=== PATIENT | male | born 1970 | race Caucasian/White ===

== ENCOUNTER 2024-11-21 01:07 | Inpatient (IN) | payer OTHER, SELFPAY ==
[2024-11-21] VITALS (53 sets, daily range): BP systolic 94–166; BP diastolic 62–115; PULSE 61–91; RESP 11–34; TEMP 36.1–37.1; O2SAT 89–100; BMI 28.7
--- NOTE | 2024-11-21 01:08 | ECG_ITS ---
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 Measurements Intervals [place] Rate: 56 P: 76 MO: 154 QRS: 91 QRSD: 110 T: -2 QT: 457 QTc: 443 Interpretive Statements SINUS BRADYCARDIA ANTEROLATERAL MYOCARDIAL INFARCTION , ACUTE [40+ ms Q WAVE IN I/aVL/V3-V6] ACUTE MN No previous ECG available for comparison Electronically Signed On 11-21-2024 18:29:11 CDT by Tristan [email or web address]
--- NOTE | 2024-11-21 01:12 | ECG_ITS ---
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 Measurements Intervals [place] Rate: 60 P: 68 MT: 158 QRS: 66 QRSD: 90 T: 55 QT: 449 QTc: 452 Interpretive Statements SINUS RHYTHM WITH SINUS ARRHYTHMIA ANTEROSEPTAL AND LATERAL MYOCARDIAL INFARCTION , ACUTE [40+ ms Q WAVE IN V1-V4] ACUTE MN Compared to ECG 11/21/2024 01:08:53 Sinus bradycardia no longer present Myocardial infarct finding still present Electronically Signed On 11-21-2024 18:28:41 CDT by Tristan [email or web address] [id number]
[2024-11-21] MEDS: heparin 5,000 unit/mL INJ 1 mL 4000 UNIT IVP (01:17)
--- NOTE | 2024-11-21 01:17 | ED_ITS ---
HPI - Chest Pain General: Chief Complaint: Chest Pain Stated Complaint: stemi Time Seen by Provider: 11/21/24 01:08 History of Present Illness: 54-year-old male presents to the emergen cy room via EMS with sudden onset of chest pain. He had gone outside to smoke a cigarette and had chest discomfort became increasingly worse radiating to his back neck and left arm. Went back inside was nauseous had an episode of diarrhea became short of breath and diaphoretic EMS was called. EMS had called a STEMI in the field we did call the STEMI prior to their arrival EKG they send this had some abnormalities that were not clearly convincing. However on arrival the EKG given by EMS clearly showed an ST elevation. Repeat EKG in the department confirms obvious anterior septal TN with pronounced ST elevation in V1 through V6 most prominent in V2 3 and 4. Patient is actively having chest pain. 1 and aVL also show ST elevation. There are some slight reciprocal changes in 2 3 and aVF. Patient is a smoker he is nondiabetic he has no known history of coronary artery disease. He is not on any anticoagulation Associated symptoms: Deny abdominal pain, dyspnea or fever(s) Related Data Allergies Allergy/AdvReac Type Severity Reaction Status Date / Time metoprolol Allergy Unknown Verified 11/21/24 01:12 Review of Systems Const: Denies: fever(s) or chills Card: Reports: chest pain Resp: Denies: dyspnea GI: Denies: abdominal pain : Denies: dysuria, urinary frequency or urinary urgency Musc: Denies: neck pain or back pain Skin/Breast: Denies: rash Physical Exam Narrative: EXAM NARRATIVE: Pale and mildly diaphoretic on arrival Const: GENERAL APPEARANCE: cooperative ORIENTATION/CONSCIOUSNESS: Yes awake, Yes oriented to person, Yes oriented to place and Yes oriented to time HENMT: COMMON NORMALS: normocephalic, atraumatic and hearing grossly normal bilaterally HEAD & SCALP: normocephalic and atraumatic Resp: COMMON NORMALS: normal respiratory effort, No retractions, No use of accessory muscles and clear to auscultation bilaterally AUSCULTATION: clear to auscultation bilaterally Cardio: COMMON NORMALS: regular rate, regular rhythm and No murmurs present (Cardio) RATE: regular rate RHYTHM: regular rhythm GI: COMMON NORMALS: Soft to palpation and No hepatosplenomegaly present AUSCULTATION: Yes normoactive bowel sounds PALPATION: Yes Soft to palpation, No Tenderness to palpation present (GI), No Guarding due to palpation present (GI) and Yes No hepatosplenomegaly present Extremity: COMMON NORMALS: normal to inspection, capillary refill normal, no clubbing, cyanosis or edema, no calf tenderness and no pedal edema Neuro: SENSORIUM/ORIENTATION: Yes oriented to person, Yes oriented to place and Yes oriented to time Skin: COMMON NORMALS: no rashes or lesions noted GENERAL SKIN EXAM: no rashes or lesions noted Course Vital Signs: Vital signs: Vital Signs Temperature 97.5 F L 11/21/24 01:08 Pulse Rate 71 11/21/24 01:08 Respiratory Rate 16 11/21/24 01:08 Blood Pressure 134/99 11/21/24 01:08 Pulse Oximetry 100 11/21/24 01:08 Oxygen Delivery Me thod Room Air 11/21/24 01:08 MDM - Chest Pain Medical Decision Making Patient is clearly having an anterior septal TN with marked ST changes. Discussed with Dr. Sequeira he arrives shortly after patient had arrived. Yadiel pineda will be taken directly to [facility] Kn[facility]. Patient was given Plavix and heparin in the emergency room. Medical Records I reviewed the patient's medical records. Lab Data I reviewed the patient's lab results. No radiology studies performed this visit Discharge Plan Discharge Patient Disposition: Admitted As Inpatient Clinical Impression: ST elevation myocardial infarction (STEMI) Condition: Stable Coding Level of Care Code ED Motel Operator for Magen Byers
--- NOTE | 2024-11-21 01:25 | XACV_ITS ---
Exam Room: 2 Ht: 191 cm Wt: 104 kg BSA: 2.37 m2 Gender: Male : 1970 Exam Priority: Routine Procedure(s): Procedure Description: Diagnostic procedure Procedure Description: PCI procedure Procedure Description: Drug Eluting Coronary Stent Procedure Description: PTCA Procedure Description: Coronary Thrombectomy Procedure Description: Miscellaneous Procedure Description: ACT Procedure Description: Coronary Angiography Diagnostic Cath Status: Emergency Diagnostic Findings * INDICATION: STEMI. * Left Main has no significant disease. * Circumflex has mild luminal irregularities. OM 1 has diffuse moderate disease. * Proximal Left Anterior Descending: total thrombotic occlusion, 100% stenosis, SHUN: 0 flow. * Mid Left Anterior Descending: obstructive 70% stenosis, SHUN: 3 flow. * Proximal Right Coronary Artery: significant 80% stenosis, SHUN: 3 flow. * 1st Diagonal: obstructive 70% stenosis, SHUN: 3 flow. * Coronary angiography shows right dominance. PCI Status: Emergency Interventional Findings * Proximal Left Anterior Descendin% stenosis treated with a MDT LEONARD EUPHORA RX [id number] BALLOON, AB TREK 2.50X20 RX BALLOON, MDPrasanna Damico FATUMA 3.5X34 MANAN. 0% residual stenosis, SHUN: 3 flow. * Mid Left Anterior Descendin% stenosis treated with a MORALES Damico FATUMA 3.0X15 MANAN, MDT LEONARD EUPHORA RX [id number] BALLOON. 0% residual stenosis, SHUN: 3 flow. * Procedure detail: We engaged left main artery with XB 3.0 guide catheter. IV heparin was administered to maintain anticoagulation. Run-through wire was used to cross totally occluded LAD vessel and was placed in distal vessel. We initially performed balloon angioplasty with 2.5 x 15 mm. This did not restore any flow. We used Pronto aspiration catheter and performed manual thrombectomy. This restored flow into LAD. We then placed 3.5 x 34 mm resolute Fatuma drug-eluting stent from proximal to mid LAD. At distal edge of the stent, there was residual stenosis which was treated with 3.0 x 15 mm resolute Fatuma drug-eluting stent. Stents were postdilated with 3.75 x 15 mm resolute Blessing drug-eluting stent. At this time final angiogram was performed that showed excellent expansion and no residual stenosis. Ostial diagonal artery was also treated with 2.5 x 15 mm semicompliant balloon. 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 * Diagonal artery: 70% stenosis treated with a AB TREK 2.50X15 RX BALLOON. 0% residual stenosis, SHUN: 3 flow. Conclusions 1. Total thrombotic occlusion of proximal LAD. Status post successful revascularization with 2 stents and aspiration thrombectomy. 2. Diagonal artery was treated with a Balloon. 3. Mid Left Anterior Descending was treated with a Drug Eluting Stent and balloon. 4. Proximal Left Anterior Descending was treated with a Balloon, Balloon, Drug Eluting Stent. 5. Staged PCI of RCA in 2-4 weeks. Recommendations * Dual antiplatelet therapy with aspirin and plavix. * Plan for staged PCI of proximal RCA in 2-4 weeks. Interventional RX Recommendation: PCI w/o planned CABG Diagnostic RX Recommendation: PCI w/o planned CABG Anticoagulation: Heparin Pressures Phase:Rest AO : 96 / 73 ( 81 ) @ 11:10:11 PM Clinical Evaluation EBL: 5mL-10mL Procedural Details AP pads applied. Procedure started. Inpatient/Outpatient History & Physical on Chart: N/A Emergent. If H&P is completed, is and addenduem needed: N/A Emergent; If yes, is the addendum complete: N/A Emergent. Pre Procedural Pulses: bilateral radial was 3+. bilateral groins was prepped with chloroprep then draped in the usual sterile fashion. 6 burmese XB 3.5 guide catheter was inserted over the wire. Wire out. Balloon out otw. 5.5F Pronto aspiration catheter in over the wire to LAD. Manual coronary thrombectomy performed with pronto aspiration catheter. Pronto aspiration catheter out OTW. 2nd runthrough wire obtained and advanced to LAD. Balloon inserted to lesion in the prox LAD over second runthrough wire in LAD. Stent inserted to lesion in the prox LAD. Inflation number: 4 The stent balloon was then re-inflated across the Mid LAD to 12 JOE for 0:12 seconds. 1st runthrough wire out. Guideliner in over the wire. Inflation Number : 1 A MDT R FATUMA 3.0X15 MANAN -Lot Number# [id number] EXP 05-30-2027 was prepped and advanced across the Mid LAD. The stent was deployed at 12 JOE for 0:26 seconds. Inflation number: 4 The stent balloon was then re-inflated across the Prox LAD to 12 JOE for 0:10 seconds. Stent balloon out over the wire. Results checked. Balloon inserted to lesion in the mid LAD. Inflation number : 2 A MDT NC EUPHORA RX [id number] BALLOON was prepped and advanced across the Mid LAD , then inflated to 12 JOE for 0:10 seconds. Inflation number: 3 The MDT NC EUPHORA RX [id number] BALLOON was reinflated across the Mid LAD, to 14 JOE for 0:07 seconds. Inflation number: 1 The MDT NC EUPHORA RX 3.33T62QU BALLOON was reinflated across the Prox LAD, to 18 JOE for 0:12 seconds. Balloon out. Results checked. Guideliner out. Second runthrough wire advanced through guidecatheter to diagonal artery. Runthrough wire in LAD out. Balloon inserted to lesion in the diaganol. Unable to cross , undeployed 2.5 X 12mm balloon out over the wire. Balloon inserted to lesion in the diaganol. Undeployed 2.0 X 12 mm balloon out over wire. Wire out. Results checked. Admit Source: Emergency department. ACT drawn. Results out of range high results. Therapeutic limits - pre-heparin administration 90-150 seconds and monitoring heparin during a vascular procedure >250 seconds. Guide catheter out. A 5 burmese JR4 catheter in over wire. Wire out. Multiple views taken of right coronary artery. Catheter removed over the exchange wire. Wire out. ACT drawn. Results 286 seconds. Therapeutic limits - pre-heparin administration 90-150 seconds and monitoring heparin during a vascular procedure >250 seconds. Post Procedure: Pulses reassessed and unchanged. PERRLA. Strong, equal hand framework developer bilaterally. No VTE prophylaxis required. Medication's Wasted: Lidocaine 1% = 18 mL. Medication's Wasted: Nitro = 49.8 mg. Medication's Wasted: Heparin = 4000 units. Medication's Wasted: Other = Fentanyl 75mcg. Total IV fluids: 85 mL. PCI Indication: STEMI. Post-op diagnosis: Anterior wall NV, status post PCI placement of 2 stents to LAD. Complications: None. Estimated blood loss: 5mL-10mL. Responsiveness - Normal response to verbal stimuli; alert and oriented, PERRLA. Airway - Unaffected, no intervention required; spontaneous ventilation. Circulation: W/N/L, pulses unchanged. Nausea/Vomiting: Yes. Pre-Procedure Time Out. Identified patient by full name and date of as verbalized by the patient/guarantor. Does the consent match the physician's order: N/A Emergent; Informed Consent not obtained due to time critical life threat. Accurate & Complete Informed Consent: N/A Emergent; Informed Consent not obtained due to time critical life threat. Visualize and Verify Site with Patient/Guarantor: N/A. Relevant Radiology Images available: N/A. The risks, benefits, and alternatives of sedation and/or procedure were discussed by physician. The patient agrees to continue. [facility] Clinical Fraility Score: 3: Managing Well. Principal Software Engineer Indications: ACS <= 24 hours. Chest Pain Symptom Assessment: Typical Angina Symptoms. Correct patient, site and procedure confirmed by cath team. Current diagnosis: STEMI. PERRLA. Strong, equal hand framework developer bilaterally. Lungs clear x 5 lobes. IV Site on Arrival: 20 gauge in the right anticubital. IV Site on Arrival: 18 gauge in the left anticubital. IV Fluids: 0.9% NaCl at KVO. 0 mL infused prior to label printing machinist. Oxygen started at 2liters/min via nasal canula. Physician arrived. Physician scrubbed in. Immediate Pre-Procedure Time Out. Correct Patient: Yes; Correct Procedure: Yes; Correct Site: Yes; Correct Patient Position: Yes; Correct Supplies: Yes; Dried Flammable Prep: Yes; Blood Products Available: No;. Lidocaine 1% infiltrated to the right radial. Arterial access obtained. Runthrough guidewire was advanced through the guide catheter to lesion in the prox LAD. Guidewire advanced across lesion. Balloon inserted to lesion in the prox LAD. Inflation number : 1 A AB TREK 2.50X15 RX BALLOON was prepped and advanced across the Prox LAD1 , then inflated to 8 JOE for 0:10 seconds. Inflation number: 2 The AB TREK 2.50X15 RX BALLOON was reinflated across the Prox LAD1, to 8 JOE for 0:11 seconds. Inflation number: 3 The AB TREK 2.50X15 RX BALLOON was reinflated across the Prox LAD1, to 8 JOE for 0:14 seconds. Inflation number: 4 The AB TREK 2.50X15 RX BALLOON was reinflated across the Prox LAD1, to 8 JOE for 0:11 seconds. Inflation number: 5 The AB TREK 2.50X15 RX BALLOON was reinflated across the Prox LAD1, to 10 JOE for 0:12 seconds. Inflation number: 6 The AB TREK 2.50X15 RX BALLOON was reinflated across the Prox LAD1, to 10 JOE for 0:11 seconds. Inflation number: 7 The AB TREK 2.50X15 RX BALLOON was reinflated across the Prox LAD1, to 10 JOE for 0:12 seconds. Results checked. Inflation number : 2 A AB TREK 2.50X20 RX BALLOON was prepped and advanced across the Prox LAD , then inflated to 8 JOE for 0:13 seconds. Balloon out. Results checked. Inflation Number : 3 A MORALES R FATUMA 3.5X34 MANAN -Lot Number# [id number] EXP 10-08-2026 was prepped and advanced across the Prox LAD. The stent was deployed at 12 JOE for 0:15 seconds. Stent balloon out over wire. Stent inserted to lesion in the mid LAD. Stent inserted to lesion in the mid LAD. A TR Band was successful obtaining hemostatsis at the Right Radial artery insertion site. Procedure completed. Patient transferred by bed to ICU. Access Site Site: Right Radial artery Sheath Size: 6 Fr Hemostasis Method: TR Band Hemostasis Success: Successful Procedure Medications Start: 2:26 AM Stop: 2:26 AM Medication: Fentanyl Amount: 25 mcg Route: I.V. Start: 2:30 AM Stop: 2:30 AM Medication: Versed Amount: 1 mg Route: I.V. Start: 2:30 AM Stop: 2:30 AM Medication: Heparin Amount: 1000 units Route: I.V. Start: 2:39 AM Stop: 2:39 AM Medication: Versed Amount: 1 mg Route: I.V. Start: 2:55 AM Stop: 2:55 AM Medication: Zofran (ondansetron) Amount: 4 mg Route: I.V. Start: 1:31 AM Stop: 1:31 AM Medication: Zofran (ondansetron) Amount: 4 mg Route: I.V. Start: 1:31 AM Stop: 1:31 AM Medication: Versed Amount: 1 mg Route: I.V. Start: 1:31 AM Stop: 1:31 AM Medication: Fentanyl Amount: 25 mcg Route: I.V. Start: 1:39 AM Stop: 1:39 AM Medication: Versed Amount: 1 mg Route: I.V. Start: 1:42 AM Stop: 1:42 AM Medication: Nitrogylcerin Amount: 200 mcg Route: I.A. Start: 1:42 AM Stop: 1:42 AM Medication: Fentanyl Amount: 50 mcg Route: I.V. Start: 1:49 AM Stop: 1:49 AM Medication: Versed Amount: 1 mg Route: I.V. Start: 1:50 AM Stop: 1:50 AM Medication: Fentanyl Amount: 25 mcg Route: I.V. Start: 1:53 AM Stop: 1:53 AM Medication: Heparin Amount: 5000 units Route: I.V. Start: 1:54 AM Stop: 1:54 AM Medication: Fentanyl Amount: 25 mcg Route: I.V. Start: 1:59 AM Stop: 1:59 AM Medication: Versed 1 mg and Fentanyl 25 mcg Amount: 1 Route: I.V. Start: 2:03 AM Stop: 2:03 AM Medication: Heparin Amount: 1000 units Route: I.V. Start: 2:06 AM Stop: 2:06 AM Medication: Fentanyl Amount: 25 mcg Route: I.V. Start: 2:12 AM Stop: 2:12 AM Medication: Fentanyl Amount: 25 mcg Route: I.V. I, the attending physician, have reviewed and verified all procedure medications. Yes, all medications given per verbal order History/Risk Factors Renal Disease: No Report Signatures Finalized by Uvaldo Sequeira MD on 11/30/2024 11:57 AM
--- NOTE | 2024-11-21 01:27 | PM.HP ---
Providers/Chief Complaint Admitting Physician: Uvaldo Sequeira MD/ Cardiology Chief Complaint: stemi History of Present Illness Marquis Tilley is a 54 year old male with no significant prior cardiac history has been brought to the emergency room by EMS with with severe substernal chest pressure. According to patient it started acutely when he was out to smoke. Radiating to the left arm and jaw. Associated with diaphoresis and nausea. EKG demonstrating acute ST elevation NH in anterior and lateral leads. Review of Systems Const: Denies: fever(s) or chills Card: Reports: chest pain Resp: Denies: dyspnea GI: Denies: abdominal pain : Denies: dysuria, urinary frequency or urinary urgency Musc: Denies: neck pain or back pain Skin/Breast: Denies: rash Medications/Allergies Allergies Allergy/AdvReac Type Severity Reaction Status Date / Time metoprolol Allergy Unknown Verified 11/21/24 01:12 PFSH Acute PFSH: Social History Smoking and tobacco/nicotine status: current every day tobacco/nicotine user Vitals/I&O/Wt Last Vital Signs Temp 97.5 F L 11/21/24 01:08 Pulse 61 11/21/24 01:18 Resp 16 11/21/24 01:08 BP 134/99 11/21/24 01:18 Pulse Ox 100 11/21/24 01:18 O2 Del Method Room Air 11/21/24 01:08 Weight last 48 hrs Weight 230 lb Physical Exam Narrative: GENERAL: Patient is alert, awake and oriented x3. HEART: Regular S1 and S2. No murmur, rub or gallop. LUNGS: Clear to auscultate bilaterally. CENTRAL NERVOUS SYSTEM: Grossly nonfocal. EXTREMITIES: Lower extremities without edema bilaterally. Data 11/21/24 01:12 11/21/24 01:12 A&P Assessment and plan 1. ST elevation myocardial infarction (STEMI): Plan: Patient has presented with acute anterior/anterolateral wall ST elevation NH. Will take patient emergently to cardiac Environmental Health Safety Manager for coronary angiogram with PCI. Patient received loading doses of aspirin and Plavix. Also heparin bolus. We will obtain echocardiogram post procedure We will transfer patient to ICU. PDMP PDMP Reviewed: Not Reviewed Attestations Medical Necessity Statement*: Care expected to cross 2 midnights. Patient has presented with acute anterior/anterolateral wall ST elevation NH. Going to crime lab technician for emergent left heart cath with possible PCI. Coding Level of Care Code Acute Code for [facility]eeshan Diagnoses ST elevation myocardial infarction (STEMI) I21.3
[2024-11-21 01:37] LABS: Troponin(5th) Baseline 25 ng/L (0-15)
[2024-11-21 02:21] LABS: Hematocrit 44.3 % (37-53); Hemoglobin 15.10 g/dL (11.27-16.99); Mean Corpuscular HGB Conc 34.1 g/dL (30-55); Mean Corpuscular Hemoglobin 31.7 pg (27-33); Mean Corpuscular Volume 93.1 fl (82-101); Nucleated Red Blood Cells % 0 %; Platelet Count 312 10^3/cmm (157-399); Red Blood Count 4.76 10^6/uL (3.85-5.65); White Blood Count 17.74 10^3/uL (3.29-11.43)
[2024-11-21 02:35] LABS: Anion Gap 20.6 (5-19); Blood Urea Nitrogen 10 mg/dL (6-20); Calcium 9.4 mg/dL (8.5-10.5); Carbon Dioxide 21 mmol/L (22-29); Chloride 100 mmol/L (98-107); Creatinine Clr Calc Pharmacy 86.9004; Glucose 173 mg/dL (65-115); Osmolality Calculated 289 mOsm/kg (285-295); Potassium 3.6 mmol/L (3.5-5.1); Sodium 138 mmol/L (136-145)
--- NOTE | 2024-11-21 03:04 | USCV_ITS ---
Marquis Tilley Age: 54 Gender: M : 1970 Exam Date: 11/21/2024 03:56 Ordering Phys: Uvaldo Sequeira M.D ([email or web address]) Technologist: DEVORA Exam Location: [facility] [place] Indication: STEMI, s/p cardiac cath, long-term smoker continues smoking BP: 134 / 99 HR: 63 Rhythm: Sinus Technical Quality: Suboptimal MEASUREMENTS (Male / Female) Normal Values 2D ECHO LV Diastolic Diameter PLAX 4.0 cm 4.2 - 5.9 / 3.9 - 5.3 cm IVS Diastolic Thickness 1.9 cm 0.6 - 1.0 / 0.6 - 0.9 cm IVS Systolic Thickness 2.0 cm LVPW Diastolic Thickness 1.5 cm 0.6 - 1.0 / 0.6 - 0.9 cm LVPW Systolic Thickness 2.3 cm LVOT Diameter 2.1 cm LV Ejection Fraction 2D Teich 60.4 % LV Ejection Fraction MOD 4C 44.3 % LV Ejection Fraction MOD 2C 61.4 % LV Ejection Fraction 2C AL 1.4 % LA Diameter 4.2 cm Aorta at Sinotubular Diameter 3.0 cm IVC Diameter 2.6 cm M-MODE LA Ao Ratio MM 1.3 AV Cusp Separation MM 1.7 cm DOPPLER AV Peak Velocity 88.0 cm/s LVOT Peak Velocity 81.0 cm/s AV Area Cont Eq vti 3.3 cm squared AV Area Cont Eq pk 3.2 cm squared MV Peak Velocity 76.0 cm/s MV Area PHT 3.6 cm squared Mitral E to A Ratio 1.9 TR Peak Velocity 238.0 cm/s TR Peak Gradient 22.7 mmHg TV Peak E Velocity 48.0 cm/s PV Peak Velocity 77.0 cm/s FINDINGS Left Ventricle Mildly increased left ventricular cavity size. Moderately decreased left ventricular systolic function. Left ventricular ejection fraction is estimated at 45 %. There is mid to distal and apical hypokinesis suggestive of ischemic cardiomyopathy.Grade II/IV diastolic dysfunction, moderately elevated filling pressures. Right Ventricle The right ventricle is normal in size and function. Right Atrium The right atrium is normal in size. Left Atrium Moderately increased left atrial size. Mitral Valve Mildly thickened mitral valve. No mitral valve stenosis. Trace mitral valve regurgitation. Aortic Valve Mild aortic valve calcification. No aortic valve stenosis. Trace aortic valve regurgitation. Tricuspid Valve Structurally normal tricuspid valve without significant stenosis or regurgitation. Pulmonary artery systolic pressure is normal. Pulmonic Valve Structurally normal pulmonic valve without significant stenosis. There is no pulmonic regurgitation. Pericardium Normal pericardium without effusion. Aorta Normal ascending aorta dimension. IVC The inferior vena cava appears normal. CONCLUSIONS Mildly increased left ventricular cavity size. Moderately decreased left ventricular systolic function. Left ventricular ejection fraction is estimated at 45 %. There is mid to distal and apical hypokinesis suggestive of ischemic cardiomyopathy.Grade II/IV diastolic dysfunction, moderately elevated filling pressures. Moderately increased left atrial size. Mild aortic valve calcification. No aortic valve stenosis. Trace aortic valve regurgitation. Mildly thickened mitral valve. No mitral valve stenosis. Trace mitral valve regurgitation. There is no pericardial effusion. Right atrial pressure is around 15 mm of mercury. Cindy Gómez MD (Electronically Signed) Final Date: 22 November 2024 00:06 S
--- NOTE | 2024-11-21 03:06 | P.PCN_ITS ---
Procedure Note: Date of procedure: 11/21/24 Pre-procedure diagnosis: STEMI Post-procedure diagnosis: other (Total thrombotic occlusion of proximal LAD s/p PCI with 2 stents.) Procedure: Proximal LAD is totally occluded with a large thrombus burden. Status post PCI with 2 stents and aspiration thrombectomy. RCA has severe proximal vessel disease. Plan for staged PCI Dual antiplatelet therapy with aspirin and plavix High intensity statin therapy Transfer to ICU. We will load again with plavix 300mg and start aggrastat as patient had large amount of vomitting in director of cath lab after DAPT was given. Performing Provider: Uvaldo Sequeira Complications: None Condition: critical Disposition: ICU Coding Level of Care Code Acute Code for Magen Byers
--- NOTE | 2024-11-21 03:33 | ECG_ITS ---
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 Measurements Intervals [place] Rate: 61 P: 61 FL: 155 QRS: 91 QRSD: 96 T: 84 QT: 450 QTc: 456 Interpretive Statements SINUS RHYTHM BORDERLINE RIGHT AXIS DEVIATION [QRS AXIS > 90] ANTEROSEPTAL MYOCARDIAL INFARCTION , PROBABLY RECENT [40+ ms Q WAVE IN V1-V4] ACUTE [place] Compared to ECG 11/21/2024 01:13:23 Sinus arrhythmia no longer present Myocardial infarct finding still present Electronically Signed On 11-22-2024 08:51:23 CDT by Uvaldo Sequeira M.D. [email or web address]
[2024-11-21] MEDS: metoclopramide 5 mg/mL SDV 2 mL IVP (03:55)
--- NOTE | 2024-11-21 04:05 | PC.NURSE ---
Aggrastat Patient nauseous and vomiting. Dr. Sequeira contacted; orders received for 5 mg reglan IVP PRN Q6H as well as to administer the aggrastat for 8 hours total instead of 4 at the protocol rate.
[2024-11-21] MEDS: tirofiban 5 MG/100 ML PREMIX 12.5 MG IV (04:11)
[2024-11-21 06:07] LABS: Troponin 5 2HR 7726 ng/L (0-15); Troponin 5 2HR Delta 7701 ABS# (0-10)
--- NOTE | 2024-11-21 07:08 | ECG_ITS ---
[facility]ino Test Date: 2024-11-21 Pat Name: Marquis Tilley Department: Room: [facility] Gender: Male Surgical Nurse: : 1970 Requested By: Gaetano Alexander Order Number: [id number] Yolande MD: Uvaldo Sequeira M.D. Measurements Intervals [place] Rate: 69 P: 52 NV: 144 QRS: 76 QRSD: 98 T: 86 QT: 434 QTc: 467 Interpretive Statements SINUS RHYTHM ANTEROLATERAL MYOCARDIAL INFARCTION , PROBABLY RECENT [40+ ms Q WAVE IN I/aVL/V3-V6] Compared to ECG 11/21/2024 03:33:15 No significant changes Electronically Signed On 11-22-2024 08:46:55 CDT by Uvaldo Sequeira M.D. [email or web address]
[2024-11-21 07:44] LABS: Troponin 5 6HR 9378 ng/L (0-15)
[2024-11-21 07:45] LABS: Troponin 5 6HR Delta 9353 ng/L (0-12)
--- NOTE | 2024-11-21 08:11 | PC.NURSE ---
TR Band Removal 0410-2 ml air removed 0430-2 ml air removed 0450-2 ml air removed 0510-2 ml air removed 0540-2 ml air removed 0600-2 ml air removed 0615-2 ml air removed At 0635, TR band completely removed. No hematoma noted, all vital signs stable.
--- NOTE | 2024-11-21 12:06 | PC.NURSE ---
Dr. Kevin gave vo for one time dose of 300 mg plavix
[2024-11-21] MEDS: ondansetron 2 mg/ML SDV 2 mL 4 MG IVP (13:00)
[2024-11-21] MEDS: alum-mag-hydroxide-sime 30 mL UDC PO (20:58)
[2024-11-22] VITALS (27 sets, daily range): BP systolic 121–147; BP diastolic 87–109; PULSE 74–104; RESP 10–24; TEMP 36.6–37.2; O2SAT 91–98
[2024-11-22 05:30] LABS: Hematocrit 42.1 % (37-53); Hemoglobin 14.50 g/dL (11.27-16.99); Mean Corpuscular HGB Conc 34.4 g/dL (30-55); Mean Corpuscular Hemoglobin 31.5 pg (27-33); Mean Corpuscular Volume 91.5 fl (82-101); Nucleated Red Blood Cells % 0 %; Platelet Count 279 10^3/cmm (157-399); Red Blood Count 4.60 10^6/uL (3.85-5.65); White Blood Count 22.17 10^3/uL (3.29-11.43)
[2024-11-22 05:43] LABS: Anion Gap 18.9 (5-19); Blood Urea Nitrogen 14 mg/dL (6-20); Calcium 9.2 mg/dL (8.5-10.5); Carbon Dioxide 21 mmol/L (22-29); Chloride 101 mmol/L (98-107); Creatinine Clr Calc Pharmacy 91.1574; Glucose 121 mg/dL (65-115); Osmolality Calculated 286 mOsm/kg (285-295); Potassium 3.9 mmol/L (3.5-5.1); Sodium 137 mmol/L (136-145)
[2024-11-22 05:46] LABS: Estmated Average Glucose 120; Hemoglobin A1C 5.8 % (4.0-6.0)
--- NOTE | 2024-11-22 10:04 | PM.DCS ---
Discharge Providers Date of Admission: 11/21/24 03:15 Date of Discharge: November 22, 2024 Attending Provider at Admission: Uvaldo Sequeira M.D Attending Provider at Discharge: Uvaldo Sequeira M.D Diagnoses at Discharge Discharge Diagnosis 1. ST elevation myocardial infarction (STEMI): 2. Ischemic cardiomyopathy: Reason for Visit Reason for Visit: stemi Brief History: 54 year old male with no significant prior cardiac history has been brought to the emergency room by EMS with with severe substernal chest pressure. According to patient it started acutely when he was out to smoke. Radiating to the left arm and jaw. Associated with diaphoresis and nausea. EKG demonstrating acute ST elevation PA in anterior and lateral leads. Hospital Course Hospital Course Patient had total occlusion of proximal LAD. Underwent successful revascularization with 2 stents. There is an occluded diagonal artery in which flow was not restored. RCA has proximal significant stenosis. Will be treated with staged PCI in 2-4 weeks. Patient stayed stable and chest pain-free. Echo showed systolic function is mildly reduced with EF of 45%. Patient discharged home in a stable condition on aspirin, Plavix, statin, beta-james and losartan. We will arrange for outpatient close follow-up. WBC count was high which is reactive secondary to PA as patient is asymptomatic and afebrile. Physical Exam Narrative: GENERAL: Patient is alert, awake and oriented x3. HEART: Regular S1 and S2. No murmur, rub or gallop. LUNGS: Clear to auscultate bilaterally. CENTRAL NERVOUS SYSTEM: Grossly nonfocal. EXTREMITIES: Lower extremities without edema bilaterally. Discharge Data Studies Completed and Pending Completed Studies During Hospitalization Category Date Time Status CV. echo complete* [id number] Routine Ultrasound 11/21/24 03:04 Completed Pending at discharge Category Date Time Status FIRE PROTECTION INSPECTOR request for service Stat Exams 11/21/24 01:25 Taken Basic Metabolic Panel AM LABS Lab 11/23/24 04:00 Ordered Basic Metabolic Panel AM LABS Lab 11/24/24 04:00 Ordered Complete Blood Count w/Auto AM LABS Lab 11/23/24 04:00 Ordered Complete Blood Count w/Auto AM LABS Lab 11/24/24 04:00 Ordered Laboratory Results WBC 22.17 10^3/uL (3.29-11.43) H 11/22/24 04:36 RBC 4.60 10^6/uL (3.85-5.65) 11/22/24 04:36 Hgb 14.50 g/dL (11.27-16.99) 11/22/24 04:36 Hct 42.1 % (37-53) 11/22/24 04:36 MCV 91.5 fl (82-101) 11/22/24 04:36 MCH 31.5 pg (27-33) 11/22/24 04:36 MCHC 34.4 g/dL (30-55) 11/22/24 04:36 RDW 12.9 % (12.1-15.1) 11/22/24 04:36 Plt Count 279 10^3/cmm (157-399) 11/22/24 04:36 MPV 11.3 fL (7.4-10.4) H 11/22/24 04:36 Neut % (Auto) 75.5 % 11/22/24 04:36 Lymph % (Auto) 16.0 % 11/22/24 04:36 Catron % (Auto) 7.8 % 11/22/24 04:36 Eos % (Auto) 0.0 % 11/22/24 04:36 Baso % (Auto) 0.2 % 11/22/24 04:36 Neut # (Auto) 16.73 10^3/uL (1.8-7.7) H 11/22/24 04:36 Lymph # (Auto) 3.6 10^3/uL (0.8-4.8) 11/22/24 04:36 Catron # (Auto) 1.7 10^3/uL (0.2-0.9) H 11/22/24 04:36 Eos # (Auto) 0.0 10^3/uL (0.0-0.8) 11/22/24 04:36 Baso # (Auto) 0.0 10^3/uL (0.0-0.1) 11/22/24 04:36 Nucleated RBC % (auto) 0 % 11/22/24 04:36 Nucleated RBCs # 0.0 /100WBC 11/22/24 04:36 Sodium 137 mmol/L (136-145) 11/22/24 04:36 Potassium 3.9 mmol/L (3.5-5.1) 11/22/24 04:36 Chloride 101 mmol/L (98-107) 11/22/24 04:36 Carbon Dioxide 21 mmol/L (22-29) L 11/22/24 04:36 Anion Gap 18.9 (5-19) 11/22/24 04:36 BUN 14 mg/dL (6-20) 11/22/24 04:36 Creatinine 1.2 mg/dL (0.7-1.2) 11/22/24 04:36 GFR Calculation 63.6 mL/min (90-130) L 11/22/24 04:36 Glucose 121 mg/dL (65-115) H 11/22/24 04:36 Estimat Average Glucose 120 11/22/24 04:36 Hemoglobin A1c 5.8 % (4.0-6.0) 11/22/24 04:36 Calculated Osmolality 286 mOsm/kg (285-295) 11/22/24 04:36 Calcium 9.2 mg/dL (8.5-10.5) 11/22/24 04:36 Troponin T Baseline 25 ng/L (0-15) H 11/21/24 01:12 Troponin T 120 Minute 7726 ng/L (0-15) H 11/21/24 04:54 Delta Troponin T 7701 ABS# (0-10) H* 11/21/24 04:54 Troponin T Hi Sens 6Hr 9378 ng/L (0-15) H 11/21/24 07:11 Troponin T Hi Sens 6Hr Delta 9353 ng/L (0-12) H* 11/21/24 07:11 Vitals Last Vital Signs Temp 98.9 F 11/22/24 03:30 Pulse 76 11/22/24 06:21 Resp 17 11/22/24 06:00 BP 135/91 11/22/24 09:36 Pulse Ox 93 11/22/24 06:00 O2 Del Method Room Air 11/22/24 03:30 Discharge Plan Discharge Patient Disposition: Home Condition: Stable Prescriptions: New atorvastatin 40 mg Tablet 80 mg PO BEDTIME Qty: 90 3RF clopidogrel 75 mg Tablet 75 mg PO DAILY Qty: 90 3RF aspirin 81 mg Tablet,Delayed Release (Dr/Ec) 81 mg PO DAILY Qty: 90 3RF carvedilol 3.125 mg Tablet 3.125 mg PO BID Qty: 120 3RF losartan 50 mg Tablet 25 mg PO DAILY Qty: 90 3RF pantoprazole 20 mg tablet,delayed release (DR/EC) 20 mg PO DAILY Qty: 60 1RF Discontinued potassium chloride 10 mEq Capsule, Extended Release 10 meq PO BID magnesium 250 mg Tablet 250 mg PO DAILY omeprazole 20 mg Tablet,Delayed Release (Dr/Ec) 20 mg PO DAILY Discharge Order = DC NOW: Discharge Order (Routine); Ordered 11/22/24 Ordered By: Uvaldo Sequeira [facility] Family Medicine [Other] Helen Mooney FNP [Nurse Practitioner, Cardiology] - 7-10 days Discharge Diet: Cardiac Discharge Activity: Increase activity as tolerated Patient Instructions: Opioid Safety, Patient Portal & Luciano Instructions Discharge Attestations Time Spent in Discharge Care*: greater than 30 min Quality Metrics Clinical Quality Measures [ Acute Myocardial Infaction { Clinical Trial Participant: No; Contraindication to aspirin: None; Aspirin prescribed; Contraindication to statin: None; Statin prescribed; Contraindication to PCI: None; PCI performed;}] Coding Level of Care Code Acute Code for [facility] Diagnoses ST elevation myocardial infarction (STEMI) I21.3 Ischemic cardiomyopathy I25.5
--- NOTE | 2024-11-22 13:30 | PC.NURSE ---
Patient Discharged. Medications sent to [facility]. Bilateral IVs removed. Educated patient on upcoming appointments, new medications, and activity restrictions. Patient reiceived carvedilol this morning, did not use metoprolol due to history of rash. No rash developed after carvedilol. Radial cath site is unremarkable. Patient signature form signed.
== END 2024-11-22 11:55 | disposition home or self-care (01) | DRG 322 ==
LOC: ER 01:26 → CCL 01:28 → ICU 03:15
PROVIDERS: Admitting Provider Internal Medicine; Emergency Provider Family Medicine; Visit Provider Internal Medicine
PROC: 02703ZZ Dilation of Coronary Artery, One Artery, Percutaneous Approach (ICD-10-PCS; principal; 2024-11-21 01:00)
PROC: 02703ZZ Dilation of Coronary Artery, One Artery, Percutaneous Approach (ICD-10-PCS; 2024-11-21 01:00)
DX: I21.09 ST elevation (STEMI) myocardial infarction involving other coronary artery of anterior wall (principal); I25.5 Ischemic cardiomyopathy; F17.210 Nicotine dependence, cigarettes, uncomplicated; I25.10 Atherosclerotic heart disease of native coronary artery without angina pectoris; Z88.8 Allergy status to other drugs, medicaments and biological substances; Z79.899 Other long term (current) drug therapy
CPT/HCPCS: 36415; 80048; 83036; 84484; 85025; 85347; 92973; 93005; 93306; 93454; 96374; 99152; 99153; 99285; C1725; C1757; C1769; C1874; C1887; C1894; C9600; J1644; J2250; J2405; J2765; J3010; J3490; J7030; J9999; Q9967

== ENCOUNTER → 2024-11-27 11:14 | Outpatient (BNVA) | payer OTHER, MEDICARE, SELFPAY | DX: Z09 Encounter for follow-up examination after completed treatment for conditions other than malignant neoplasm (principal); I25.5 Ischemic cardiomyopathy | CPT/HCPCS: 80053; 80061; 84443 ==

== ENCOUNTER → 2024-12-01 15:06 | Outpatient (BNVA) | payer OTHER, MEDICARE, SELFPAY | PROVIDERS: Visit Provider Nurse Practitioner Family | DX: I25.10 Atherosclerotic heart disease of native coronary artery without angina pectoris (principal); I25.5 Ischemic cardiomyopathy; I10 Essential (primary) hypertension; Z09 Encounter for follow-up examination after completed treatment for conditions other than malignant neoplasm; Z79.02 Long term (current) use of antithrombotics/antiplatelets; Z79.82 Long term (current) use of aspirin; F17.200 Nicotine dependence, unspecified, uncomplicated; Z95.5 Presence of coronary angioplasty implant and graft; I25.2 Old myocardial infarction | CPT/HCPCS: 99213 ==

== ENCOUNTER 2024-12-10 12:52 | Outpatient (CLI) | payer OTHER, SELFPAY ==
[2024-12-10 15:29] LABS: Hematocrit 36.9 % (37-53); Hemoglobin 12.40 g/dL (11.27-16.99); Mean Corpuscular HGB Conc 33.6 g/dL (30-55); Mean Corpuscular Hemoglobin 30.7 pg (27-33); Mean Corpuscular Volume 91.3 fl (82-101); Nucleated Red Blood Cells % 0 %; Platelet Count 481 10^3/cmm (157-399); Red Blood Count 4.04 10^6/uL (3.85-5.65); White Blood Count 10.05 10^3/uL (3.29-11.43)
[2024-12-10 15:48] LABS: Alanine Aminotransferase 12 U/L (0-41); Albumin Level 3.9 g/dL (3.5-5.2); Alkaline Phosphatase 84 U/L (40-130); Anion Gap 14.9 (5-19); Aspartate Amino Transferase 12 U/L (0-40); Blood Urea Nitrogen 12 mg/dL (6-20); Calcium 8.6 mg/dL (8.5-10.5); Carbon Dioxide 22 mmol/L (22-29); Chloride 105 mmol/L (98-107); Globulin 3.3 g/dL (1.3-4.6); Glucose 110 mg/dL (65-115); Osmolality Calculated 286 mOsm/kg (285-295); Potassium 3.9 mmol/L (3.5-5.1); Sodium 138 mmol/L (136-145); Total Protein 7.2 g/dL (6.6-8.7)
[2024-12-10 16:47] LABS: Free T4 Free Thyroxine 0.92 ng/dL (0.82-1.77)
== END 2024-12-10 12:53 | disposition home or self-care (01) ==
PROVIDERS: Visit Provider Nurse Practitioner Family
DX: I10 Essential (primary) hypertension (principal); I25.5 Ischemic cardiomyopathy
CPT/HCPCS: 36415; 80053; 84439; 85025

== ENCOUNTER 2024-12-15 05:43 | Outpatient (CLI) | payer OTHER, SELFPAY ==
--- NOTE | 2024-12-15 06:00 | XACV_ITS ---
Ht: 191 cm Wt: 100 kg BSA: 2.31 m2 Gender: Male : 1970 Any Known Allergies: Other Exam Priority: Routine Procedure(s): Procedure Description: Diagnostic procedure Procedure Description: PCI procedure Procedure Description: Drug Eluting Coronary Stent Procedure Description: PTCA Procedure Description: Miscellaneous Procedure Description: ACT Procedure Description: Coronary Angiography Diagnostic Cath Status: Elective Diagnostic Findings * INDICATION: Staged PCI of proximal RCA. * Proximal Right Coronary Artery : Severe 80% stenosis, SHUN: 3 flow. PLV has diffuse disease. * Left system not injected as this is a staged PCI of RCA. * Coronary angiography shows right dominance. PCI Status: Elective PCI Indication: Staged PCI Interventional Findings * Proximal Right Coronary Artery : 80% stenosis treated with a AB TREK 3.00X15 RX BALLOON, MORALES R WILLIE 3.5X18 MANAN, and MDT LEONARD EUPHORA RX 3.31X14EG BALLOON. 0% residual stenosis, SHUN: 3 flow. * Procedure detail: We engaged RCA with JR4 guide catheter. Run-through wire was used to cross the stenosis. Heparin was used to anticoagulate patient. We predilated stenosis with a 3.0 x 15 mm semi compliant balloon. We then placed 3.5x18mm resolute willie MANAN. We post dilated stent with 3.5x12mm NC balloon at high pressure. At this time final angiogram was performed that showed excellent stent expansion, no residual stenosis and SHUN-3 flow. Guidewire and guide catheter were removed. Patient left the nursery laborer in a stable condition. . Conclusions 1. Severe proximal RCA stenosis s/p PCI with 1 stent. 2. Proximal Right Coronary Artery to Proximal Right Coronary Artery was treated with a Balloon, Drug Eluting Stent, and Balloon. Recommendations * Dual antiplatelet therapy with aspirin and plavix. * High intensity statin therapy. * Outpatient cardiology follow up in 2 weeks. Interventional RX Recommendation: PCI w/o planned CABG Diagnostic RX Recommendation: PCI w/o planned CABG Anticoagulation: Heparin Pressures Phase:Rest AO : 95 / 73 ( 85 ) @ 9:22:00 AM Clinical Evaluation EBL: 5mL-10mL Procedural Details Procedure Consent Obtained. Admit Source: Out Patient. Pre-Procedure Time Out. Identified patient by full name and date of as verbalized by the patient/guarantor. Does the consent match the physician's order: Yes. Accurate & Complete Informed Consent: Yes. Inpatient/Outpatient History & Physical on Chart: Yes. If H&P is completed, is and addenduem needed: No; If yes, is the addendum complete: N/A. Visualize and Verify Site with Patient/Guarantor: N/A. Relevant Radiology Images available: N/A. The risks, benefits, and alternatives of sedation and/or procedure were discussed by physician. The patient agrees to continue. Physician arrived. Current diagnosis: Staged PCI of the RCA. Procedure started. [facility] Clinical Fraility Score: 3: Managing Well. Senior Service Technician Indications: Other. Chest Pain Symptom Assessment: Atypical Angina. Cardiovascular Instability: No. Correct patient, site and procedure confirmed by cath team. PERRLA. Strong, equal hand hospital account manager bilaterally. Lungs clear x 5 lobes. IV Site on Arrival: 20 gauge in the left anticubital. IV Fluids: 0.9% NaCl at KVO. 300 mL infused prior to nursery laborer. Pre Procedural Pulses: bilateral posterior tibial was 1+. Pre Procedural Pulses: bilateral dorsalis pedis was Doppled. Pre Procedural Pulses: bilateral radial was 2+. Oxygen started at 3liters/min via nasal canula. right groin was prepped with chloroprep then draped in the usual sterile fashion. right radial was prepped with chloroprep then draped in the usual sterile fashion. Baseline sample Acquired. HR: 0 BPM. Family updated by MD prior to the start of the procedure. Physician scrubbed in. Baseline sample Acquired. HR: 90 BPM. Immediate Pre-Procedure Time Out. Correct Patient: Yes; Correct Procedure: Yes; Correct Site: Yes; Correct Patient Position: Yes; Correct Supplies: Yes; Dried Flammable Prep: Yes; Blood Products Available: N/A;. Lidocaine 1% infiltrated to the right radial. Arterial access obtained. 6 moroccan JR 4 guide catheter was inserted over the wire. Guide seated in the RCA. Runthrough guidewire was advanced through the guide catheter to lesion in the prox RCA. Guidewire advanced across lesion. Inflation number : 1 A AB TREK 3.00X15 RX BALLOON was prepped and advanced across the Prox RCA , then inflated to 10 JOE for 0:12 seconds. Inflation number: 2 The AB TREK 3.00X15 RX BALLOON was reinflated across the Prox RCA, to 10 JOE for 0:11 seconds. Inflation number: 3 The AB TREK 3.00X15 RX BALLOON was reinflated across the Prox RCA, to 12 JOE for 0:10 seconds. Results checked. Balloon out. Inflation Number : 4 A MDT R WILLIE 3.5X18 MANAN -Lot Number# [id number] EXP 03/16/27 was prepped and advanced across the Prox RCA. The stent was deployed at 12 JOE for 0:22 seconds. Results checked. Stent balloon out over wire. Results checked. Inflation number : 5 A MDT NC EUPHORA RX [id number] BALLOON was prepped and advanced across the Prox RCA , then inflated to 12 JOE for 0:19 seconds. Inflation number: 6 The MDT NC EUPHORA RX 3.21X56HI BALLOON was reinflated across the Prox RCA, to 18 JOE for 0:09 seconds. Inflation number: 7 The MDT NC EUPHORA RX [id number] BALLOON was reinflated across the Prox RCA, to 18 JOE for 0:08 seconds. Inflation number: 8 The MDT NC EUPHORA RX 3.69F25DR BALLOON was reinflated across the Prox RCA, to 18 JOE for 0:04 seconds. Balloon out. Results checked. ACT drawn. Results Out of range Hi seconds. Therapeutic limits - pre-heparin administration 90-150 seconds and monitoring heparin during a vascular procedure >250 seconds. Wire out. Results checked. Guide catheter out. [id number]. Physician review of films. Physician scrubbed out. Post-op diagnosis: Severe proximal RCA lesion; status post 1 drug eluting stent. A TR Band was successful obtaining hemostatsis at the Right Radial artery insertion site. TR band placed. Hemostasis obtained. Post Procedure: Pulses reassessed and unchanged. PERRLA. Strong, equal hand hospital account manager bilaterally. No VTE prophylaxis required. Medication's Wasted: Lidocaine 1% = 18 ml , Nitro = 49.8 mg, Heparin =1000 units. Total IV fluids: 300 mL. Fluoro: 6:04. Contrast type used: Visipaque 320 mgI/mL, 100 mL bottle. Complications: None. Estimated blood loss: 5mL-10mL. Responsiveness - Normal response to verbal stimuli; alert and oriented, PERRLA. Airway - Unaffected, no intervention required; spontaneous ventilation. Circulation: W/N/L, pulses unchanged. Nausea/Vomiting: No. Procedure completed. Patient transferred by bed to 1st floor. Vital chart was stopped. Access Site Site: Right Radial artery Sheath Size: 6 Fr Hemostasis Method: TR Band Hemostasis Success: Successful Procedure Medications Start: 7:53 AM Stop: 7:53 AM Medication: Versed Amount: 1 mg Route: I.V. Start: 7:53 AM Stop: 7:53 AM Medication: Fentanyl Amount: 50 mcg Route: I.V. Start: 7:57 AM Stop: 7:57 AM Medication: Versed Amount: 1 mg Route: I.V. Start: 8:00 AM Stop: 8:00 AM Medication: Versed 1 mg and Fentanyl 25 mcg Amount: 1 Route: I.V. Start: 8:04 AM Stop: 8:04 AM Medication: Nitrogylcerin Amount: 200 mcg Route: I.A. Start: 8:05 AM Stop: 8:05 AM Medication: Versed Amount: 1 mg Route: I.V. Start: 8:06 AM Stop: 8:06 AM Medication: Heparin Amount: 9000 units Route: I.V. Start: 8:17 AM Stop: 8:17 AM Medication: Heparin Amount: 1000 units Route: I.V. Start: 8:20 AM Stop: 8:20 AM Medication: 0.9% Saline Amount: 250 ml Route: I.V. bolus Start: 8:24 AM Stop: 8:24 AM Medication: Fentanyl Amount: 25 mcg Route: I.V. I, the attending physician, have reviewed and verified all procedure medications. Yes, all medications given per verbal order History/Risk Factors Hypertension: Yes Dyslipidemia: No Peripheral Arterial Disease (PAD): No Myocardial Infarction (CO): Yes Obesity: No Renal Disease: No Tobacco Use: Current/Recent(w/in 1 year) Prior Interventions PCI: Yes CABG: No Valve Surgery: No Date of PCI: 11/21/2024 Report Signatures Finalized by Uvaldo Sequeira MD on 12/15/2024 09:12 AM
[2024-12-15 06:29] VITALS: BP 127/97; PULSE 91; RESP 16; TEMP 36.5; O2SAT 97; BMI 27.5
--- NOTE | 2024-12-15 07:46 | W.PM.OPSUD ---
Surgery/Procedure H&P Update DATE OF PROCEDURE: December 15, 2024 DATE H&P PERFORMED: 12/01/24 H&P UPDATE INFORMATION: I have reviewed H&P completed within last 30 days, I have examined patient prior to procedure and No changes to prior documentation PREOP DIAGNOSIS: Severe proximal to mid RCA stenosis / staged PCI PRIMARY INDICATION FOR PROCEDURE: Severe proximal to mid RCA stenosis / staged PCI PLANNED PROCEDURE: Operation Date: 12/15/24 07:00 Proposed Procedures p Percutaneous Coronary Intervention - Staged PCI(Not Applicable) - Uvaldo Sequeira M.D PATIENT REASSESSED PRIOR TO SEDATION, WITH NO CHANGE NOTED: Yes PHYSICAL EXAM: alert, oriented x 3, clear to auscultation bilaterally and regular rate & rhythm AIRWAY EVAL/ANESTHESIA PLAN: normal airway, ASA III, Local Anesthesia, Risks, benefits & alternatives of sedation and/or procedure discussed and Patient agrees to continue as planned ADDITIONAL INFORMATION: Moderate sedation
--- NOTE | 2024-12-15 08:29 | PM.PROC ---
Procedure Note: Date of procedure: 12/15/24 Pre-procedure diagnosis: Severe proximal RCA stenosis Post-procedure diagnosis: other (S/p PCI with 1 stent) Procedure: Severe proximal RCA stenosis s/p PCI with 1 stent Dual antiplatelet therapy with aspirin and plavix Performing Provider: Uvaldo Sequeira Estimated blood loss (mL): 10 Complications: None Condition: stable Disposition: floor Coding Level of Care Code [facility]
--- NOTE | 2024-12-15 08:45 | PC.NURSE ---
Received pt from physical laboratory assistant Pt is awake,ox4. Denies any chest pain or discomfort. TR band intact on right wrist. No hematoma,bleeding or swelling,radial pulse is palpale+3. Educated pt to notify nurse BASIL for any chest pain or discomfort. Unusual pain,burning sensation or swelling or bleeding on right wrist. Instructed pt on activity restriction on right wrist such as no lifting using right arm. call light provided.telemtry and BP attached and taken WNL. at bedside.
[2024-12-15 09:52] VITALS: BP 121/83; PULSE 79; RESP 29; O2SAT 95
--- NOTE | 2024-12-15 16:11 | P.SS_ITS ---
<Statement entered by Uvaldo Sequeira M.D - 12/15/24 16:35> Patient was cared for in conjunction with an advanced practice practitioner.? I reviewed the chart and all pertinent data including imaging, telemetry, and laboratory results.? I discussed the patient in detail with the advanced practice practitioner.? Please see?their note for discharge summary, testing results and agreed upon plan of care for the patient. Short Stay Summary Providers Date of Admit/Discharge: 12/15/24 Attending Provider: Uvaldo Sequeira M.D Primary Care Provider: Marlen Vaz NP Chief Complaint: I25.5 HPI History of Present Illness Marquis Tilley is a 54 year old male with past medical history of STEMI in October due to stenosis of the LAD which was treated with MANAN x 2. At that time RCA stenosis noted as well, plan was for staged RCA intervention. Review of Systems Card: Denies: chest pain, palpitations, irregular heart rhythm, edema, swelling of feet/ankles, lightheadedness, syncope, pre-syncope, dyspnea on exertion, orthopnea or leg pain with exertion Resp: Denies: dyspnea, productive cough or non-productive cough GI: Denies: hematochezia : Denies: hematuria Skin/Breast: Reports: surgical incision Mario/Lymph: Denies: easy bleeding Home Meds/Allergies Home Medications and Allergies Home Medications ?Medication ?Instructions ?Recorded ?Confirmed ?Type levothyroxine 137 mcg tablet 137 mcg PO DAILY 12/12/24 12/12/24 History Allergies Allergy/AdvReac Type Severity Reaction Status Date / Time metoprolol Allergy ALGY-Rash Verified 12/15/24 06:17 PFSH Acute PFSH: Medical History ST elevation myocardial infarction (STEMI) Surgical History H/O inguinal hernia repair bilateral Hx of tonsillectomy H/O thyroidectomy 2012 Family History Father Pancreatic cancer Diabetes mellitus, type 2 Social History Smoking and tobacco/nicotine status: current every day tobacco/nicotine user Quit status (tobacco/nicotine): considering quitting Alcohol intake: never Substance/Drug Use: current Substance/Drug use frequency: daily Vitals/I&O/Wt Last Vital Signs Temp 97.7 F 12/15/24 06:29 Pulse 79 12/15/24 09:52 Resp 29 H 12/15/24 09:52 BP 121/83 12/15/24 09:52 Pulse Ox 95 12/15/24 09:52 O2 Del Method Room Air 12/15/24 06:29 12/15/24 12/15/24 12/15/24 06:59 14:59 22:59 Intake Total 354 / 354 Balance 354 / 354 Weight last 48 hrs Weight 220 lb Physical Exam Const: COMMON NORMALS: no acute distress and patient oriented x3 GENERAL APPEARANCE: cooperative ORIENTATION/CONSCIOUSNESS: Yes awake, Yes oriented to person, Yes oriented to place and Yes oriented to time Chest: COMMONS NORMALS: normal inspection of the chest and normal palpation of entire chest wall CHEST: Yes Symmetrical chest wall rise Resp: COMMON NORMALS: normal respiratory effort, No retractions, No use of accessory muscles and clear to auscultation bilaterally AUSCULTATION: clear to auscultation bilaterally Cardio: COMMON NORMALS: regular rate, regular rhythm, S1 normal heart sound present, S2 normal heart sound present, No gallops present (Cardio), No clicks present (Cardio), No murmurs present (Cardio) and No rub (Cardio) RATE: regular rate RHYTHM: regular rhythm HEART SOUNDS: S1 normal heart sound present and S2 normal heart sound present PERIPHERAL PULSES: radial pulses present positive right 2+ and femoral pulses present positive right 2+ Neuro: COMMON NORMALS: patient oriented x3 and moves all extremities SENSORIUM/ORIENTATION: Yes oriented to person, Yes oriented to place and Yes oriented to time Skin: WOUNDS: Yes surgical site (no hematoma palpable) Details: no odor Hospital Course Admission Diagnoses Hospital Course He was brought today for staged intervention of the RCA, treated with MANAN x 1. He has done well during the day today since his procedure this morning. No complications with right radial cath site, no chest pain or shortness of breath since the procedure. Continue aspirin, Plavix, statin, carvedilol. He will discharge home today, follow-up with cardiology clinic in 7 to 10 days. SSS Data Data Completed and Pending: Completed Studies During Hospitalization Category Date Time Status ART PSYCHOTHERAPIST OR THERAPIST request for service Routin e Exams 12/15/24 06:00 Completed Discharge Plan Discharge Patient Disposition: Home Prescriptions: Continued levothyroxine 137 mcg Tablet 137 mcg PO DAILY atorvastatin 40 mg Tablet 80 mg PO BEDTIME Qty: 90 3RF clopidogrel 75 mg Tablet 75 mg PO DAILY Qty: 90 3RF aspirin 81 mg Tablet,Delayed Release (Dr/Ec) 81 mg PO DAILY Qty: 90 3RF carvedilol 3.125 mg Tablet 3.125 mg PO BID Qty: 120 3RF losartan 50 mg Tablet 25 mg PO DAILY Qty: 90 3RF pantoprazole 20 mg tablet,delayed release (DR/EC) 20 mg PO DAILY Qty: 60 1RF Discharge Order = DC NOW: Discharge Order (Routine); Ordered 12/15/24 Ordered By: Helen Mooney Referrals: Marlen Vaz NP [Primary Care Provider, Family Practice] - 12/23/24 10:40 am Helen Mooney FNP [Nurse Practitioner, Cardiology] - 12/26/24 11:00 am Diet: Cardiac Activity: Increase activity as tolerated Patient Instructions: Coronary Angioplasty (DC), Cardiac Rehabilitation (GEN), Coronary Intravascular Stent Placement (DC), Post Angiogram Home Care Instructions Activity Restrictions/Additional Instructions: No lifting over 5 pounds with the right arm for the next 4 days. Print Language: Palauan Attestations Medical Necessity Statement*: Discharge home today Time Spent in Patient Care*: less than 30 min Quality Metrics Clinical Quality Measures: [ No reported AMI, CVA or VTE this stay ] Coding Level of Care Code Acute Code for [facility] Fwd
[2024-12-15 17:24] VITALS: BP 126/84; PULSE 86; O2SAT 96
--- NOTE | 2024-12-15 17:59 | PC.NURSE ---
Discharge Note Patient discharged to home via private vehicle accompanied by . Discharge instructions reviewed with patient and/or direct customer service representative. Mobile pharmacy medications and/or prescriptions provided. Belongings/home medications returned. post angiogram home care and chest pain stoplight. and compliance with meds educated.
== END 2024-12-15 17:24 | disposition home or self-care (01) ==
LOC: CCL 05:50 → CSU 08:54
PROVIDERS: Visit Provider Internal Medicine
DX: I25.10 Atherosclerotic heart disease of native coronary artery without angina pectoris (principal); I10 Essential (primary) hypertension; I25.5 Ischemic cardiomyopathy; I25.2 Old myocardial infarction; F17.200 Nicotine dependence, unspecified, uncomplicated; Z79.82 Long term (current) use of aspirin; K21.9 Gastro-esophageal reflux disease without esophagitis; Z95.5 Presence of coronary angioplasty implant and graft; Z79.02 Long term (current) use of antithrombotics/antiplatelets; E03.9 Hypothyroidism, unspecified; R73.03 Prediabetes
CPT/HCPCS: 36415; 85347; 99152; 99153; C1725; C1769; C1874; C1887; C9600; J1644; J2250; J3010; J3490; J7030; J9999; Q0163; Q9967

== ENCOUNTER → 2024-12-26 10:44 | Outpatient (BNVA) | payer OTHER, SELFPAY | PROVIDERS: Visit Provider Internal Medicine Cardiovascular Disease | DX: I25.10 Atherosclerotic heart disease of native coronary artery without angina pectoris (principal); I10 Essential (primary) hypertension; I25.5 Ischemic cardiomyopathy; Z79.02 Long term (current) use of antithrombotics/antiplatelets; Z79.82 Long term (current) use of aspirin; F17.210 Nicotine dependence, cigarettes, uncomplicated; Z95.5 Presence of coronary angioplasty implant and graft; I25.2 Old myocardial infarction | CPT/HCPCS: 99214 ==

== ENCOUNTER 2025-01-02 14:30 | Outpatient (CLI) | payer OTHER, SELFPAY ==
--- NOTE | 2025-01-02 15:00 | USCV_ITS ---
Marquis Tilley Age: 54 Gender: M : 1970 Exam Date: 01/02/2025 14:40 Ordering Phys: Nehemias Hudson MD ([email or web address]) Technologist: [place] [facility] [place]: ef cardiomayopathy BP: 120 / 60 HR: Rhythm: Sinus Technical Quality: Adequate MEASUREMENTS (Male / Female) Normal Values 2D ECHO LVOT Diameter 2.3 cm LV Ejection Fraction MOD 4C 37.8 % LV Ejection Fraction MOD 2C 39.1 % LV Ejection Fraction 2C AL 40.6 % LA Diameter 4.4 cm RA Systolic Volume 4C AL 65.7 ml RA Systolic Volume 4C MOD 65.8 ml LA Sys Volume AL 100.1 cm cubed LA Sys Volume Index AL 44.9 cm cubed/m squared Aorta at Sinotubular Diameter 2.5 cm IVC Diameter 1.9 cm M-MODE LA Ao Ratio MM 1.2 AV Cusp Separation MM 2.3 cm FINDINGS Left Ventricle Right Ventricle Right Atrium Left Atrium Mitral Valve Aortic Valve Tricuspid Valve Pulmonic Valve Pericardium Aorta IVC CONCLUSIONS Limited echocardiogram performed to assess LV systolic function LV systolic function is moderately reduced with EF of 35-40%. Severe hypokinesis to akinesis of apical wall seen. Uvaldo Sequeira MD (Electronically Signed) Final Date: 11 January 2025 14:03 S
== END 2025-01-02 14:31 | disposition home or self-care (01) ==
LOC: RAD 14:32
PROVIDERS: Visit Provider Internal Medicine Cardiovascular Disease
DX: I25.5 Ischemic cardiomyopathy (principal); R93.1 Abnormal findings on diagnostic imaging of heart and coronary circulation; I51.89 Other ill-defined heart diseases
CPT/HCPCS: 93308